=== PATIENT | female | born 1980 | race Two or more races ===

== ENCOUNTER 2017-10-13 23:41 | Inpatient (IN) | payer MEDICAID ==
[~2017-10-13] VITALS: Ht 154.9 cm; Wt 63.7 kg
[2017-10-13 23:51] VITALS: Ht 154.9 cm; Wt 63.7 kg
[2017-10-14 00:56] LABS: BASOPHIL % 0.6 % (0-2); PLATELET COUNT 263 x10^3mcL (130-400)
[2017-10-14 00:58] LABS: RED CELL DISTRIBUTION WIDTH 14.8 % (11.5-14.5)
[2017-10-14 01:01] LABS: CALCIUM 8.8 mg/dL (8.5-10.1); CARBON DIOXIDE 28.6 mmol/L (21-32); CHLORIDE SERUM 102 mmol/L (98-107); CREATININE SERUM 0.6 mg/dL (0.6-1.0); GFR1 > 60 mL/min; GLUCOSE SERUM 101 mg/dL (74-106); POTASSIUM SERUM 3.5 mmol/L (3.5-5.1); SODIUM SERUM 140 mmol/L (136-145)
[2017-10-14 01:06] LABS: ALBUMIN 3.4 g/dL (3.4-5.0); ALKALINE PHOSPHATASE 101 U/L (46-116); ALT/SGPT 12 U/L (14-59); AST/SGOT 17 U/L (15-37); BILIRUBIN TOTAL 0.2 mg/dL (0.20-1.00); TOTAL PROTEIN, SERUM 7.4 g/dL (6.4-8.2)
[2017-10-14 03:56] VITALS: BP 93/62
[2017-10-14 03:59] LABS: T3 TOTAL 1.24 ng/mL
[2017-10-14 04:10] VITALS: BP 93/62
[2017-10-14 04:10] LABS: FREE T4 1.06 ng/dL (0.76-1.46); FREE THYROXINE INDEX 2.9 ug/dL (1.4-4.5)
[2017-10-14 04:13] LABS: microscopic required? YES; urine erythrocyte TRACE (NEGATIVE)
[2017-10-14 04:21] LABS: AMPHETAMINE QUAL UR NONE DETECTED (NEG <=1000)
[2017-10-14 04:26] LABS: TOTAL IRON BINDING CAPACITY 371 ug/dL (250-450)
[2017-10-14 04:31] LABS: IRON 33 ug/dL (50-170)
[2017-10-14 06:12] VITALS: BP 100/71
[2017-10-14 08:12] LABS: BASOPHIL % 0.5 % (0-2); PLATELET COUNT 220 x10^3mcL (130-400)
[2017-10-14 08:16] LABS: RED CELL DISTRIBUTION WIDTH 14.9 % (11.5-14.5)
[2017-10-14 08:22] LABS: CALCIUM 9.2 mg/dL (8.5-10.1); CARBON DIOXIDE 26.9 mmol/L (21-32); CHLORIDE SERUM 102 mmol/L (98-107); CREATININE SERUM 0.6 mg/dL (0.6-1.0); GFR1 > 60 mL/min; GLUCOSE SERUM 90 mg/dL (74-106); MAGNESIUM 2.2 mg/dL (1.8-2.4); PHOSPHOROUS 3.7 mg/dL (2.5-4.9); POTASSIUM SERUM 3.7 mmol/L (3.5-5.1); SODIUM SERUM 137 mmol/L (136-145)
[2017-10-14 08:49] LABS: RED BLOOD CELLS 4.24 M/mm3 (4.10-5.10)
[2017-10-14 10:00] VITALS: BP 97/55
[2017-10-14] MEDS ORDERED: LIPI20 PO (12:21)
[2017-10-14] MEDS ORDERED: FERROUS SULFAT325 M2 PO (12:22)
[2017-10-14] MEDS ORDERED: PHARMASSURE VI500 MG PO (12:41)
[2017-10-14 15:50] VITALS: BP 97/55
[2017-10-14 17:24] VITALS: BP 85/56
[2017-10-18] MEDS ORDERED: ASPIR LOW81 MG PO (01:52)
== END 2017-10-14 18:25 | disposition home or self-care (01) | DRG 243 ==
LOC: ED 23:41 → DU 10-14 02:58
PROVIDERS: Emergency Medicine; Family Medicine
DX: K21.9 Gastro-esophageal reflux disease without esophagitis (principal); E78.5 Hyperlipidemia, unspecified; M94.0 Chondrocostal junction syndrome [Tietze]; N92.0 Excessive and frequent menstruation with regular cycle; D64.9 Anemia, unspecified; Z98.891 History of uterine scar from previous surgery
CPT/HCPCS: 82962; 83880; 84439; J7030; Q0092

== ENCOUNTER 2018-04-04 21:04 | Emergency (ER) | payer MEDICAID ==
[~2018-04-04] VITALS: Ht 154.9 cm; Wt 62.6 kg
[~2018-04-04 21:04] MED LIST: ASPIR LOW81 MG PO; FERROUS SULFAT325 M2 PO; LIPI20 PO; PHARMASSURE VI500 MG PO
[2018-04-04 21:16] VITALS: Ht 154.9 cm; Wt 62.6 kg
[2018-04-04 22:18] LABS: BASOPHIL % 1.2 % (0-2); PLATELET COUNT 265 x10^3mcL (130-400)
[2018-04-04 22:53] LABS: CALCIUM 8.8 mg/dL (8.5-10.1); CARBON DIOXIDE 27.5 mmol/L (21-32); CHLORIDE SERUM 104 mmol/L (98-107); CREATININE SERUM 0.8 mg/dL (0.6-1.0); GFR1 > 60 mL/min; GLUCOSE SERUM 121 mg/dL (74-106); POTASSIUM SERUM 3.5 mmol/L (3.5-5.1); SODIUM SERUM 142 mmol/L (136-145)
[2018-04-04 22:58] LABS: ALBUMIN 3.6 g/dL (3.4-5.0); ALKALINE PHOSPHATASE 113 U/L (46-116); ALT/SGPT 19 U/L (14-59); AST/SGOT 15 U/L (15-37); BILIRUBIN TOTAL 0.25 mg/dL (0.20-1.00); TOTAL PROTEIN, SERUM 7.6 g/dL (6.4-8.2)
[2018-04-04 23:33] VITALS: BP 104/59
== END 2018-04-04 23:33 | disposition home or self-care (01) ==
LOC: ED 21:04
PROVIDERS: Emergency Medicine
DX: R07.89 Other chest pain (principal); M79.1 Myalgia; Z86.2 Personal history of diseases of the blood and blood-forming organs and certain disorders involving the immune mechanism
CPT/HCPCS: 36415; Q0092

== ENCOUNTER 2018-06-16 19:20 | Emergency (ER) | payer MEDICAID ==
[~2018-06-16] VITALS: Ht 154.9 cm; Wt 63.7 kg
[2018-06-16 20:00] VITALS: Ht 154.9 cm; Wt 63.7 kg
[2018-06-16 20:49] LABS: microscopic required? YES; urine erythrocyte TRACE (NEGATIVE)
[2018-06-16 21:12] LABS: BASOPHIL % 0.5 % (0-2); PLATELET COUNT 222 x10^3mcL (130-400); RED CELL DISTRIBUTION WIDTH 15.2 % (11.5-14.5)
[2018-06-16 21:24] LABS: CALCIUM 8.6 mg/dL (8.5-10.1); CARBON DIOXIDE 22.3 mmol/L (21-32); CHLORIDE SERUM 100 mmol/L (98-107); CREATININE SERUM 0.7 mg/dL (0.6-1.0); GFR1 > 60 mL/min; GLUCOSE SERUM 128 mg/dL (74-106); POTASSIUM SERUM 3.7 mmol/L (3.5-5.1); SODIUM SERUM 134 mmol/L (136-145)
[2018-06-16 21:29] LABS: ALBUMIN 3.6 g/dL (3.4-5.0); ALKALINE PHOSPHATASE 119 U/L (46-116); ALT/SGPT 41 U/L (14-59); AST/SGOT 42 U/L (15-37); BILIRUBIN TOTAL 0.5 mg/dL (0.20-1.00); MAGNESIUM 2.1 mg/dL (1.8-2.4); TOTAL PROTEIN, SERUM 8.1 g/dL (6.4-8.2)
[2018-06-17 00:07] VITALS: BP 99/67
== END 2018-06-17 00:07 | disposition home or self-care (01) ==
LOC: ED 19:20
PROVIDERS: Emergency Medicine
DX: B34.9 Viral infection, unspecified (principal); D64.9 Anemia, unspecified
CPT/HCPCS: 36415; 87804; J7040

== ENCOUNTER 2019-08-30 12:23 | Emergency (ER) | payer MEDICAID ==
[~2019-08-30] VITALS: Ht 154.9 cm; Wt 64.9 kg
[2019-08-30 12:31] VITALS: Ht 154.9 cm; Wt 64.9 kg
[2019-08-30 13:05] LABS: BASOPHIL % 0.6 % (0-2); PLATELET COUNT 226 x10^3mcL (130-400)
[2019-08-30 13:22] LABS: CALCIUM 8.9 mg/dL (8.5-10.1); CARBON DIOXIDE 26.8 mmol/L (21-32); CHLORIDE SERUM 102 mmol/L (98-107); CREATININE SERUM 0.7 mg/dL (0.6-1.0); GFR1 > 60 mL/min; GLUCOSE SERUM 94 mg/dL (74-106); POTASSIUM SERUM 3.6 mmol/L (3.5-5.1); RED CELL DISTRIBUTION WIDTH 14.6 % (11.5-14.5); SODIUM SERUM 137 mmol/L (136-145)
[2019-08-30 13:26] LABS: ALBUMIN 3.8 g/dL (3.4-5.0); ALKALINE PHOSPHATASE 87 U/L (46-116); ALT/SGPT 51 U/L (14-59); AST/SGOT 34 U/L (15-37); BILIRUBIN TOTAL 0.5 mg/dL (0.20-1.00); LIPASE 130 IU/L (73-393); TOTAL PROTEIN, SERUM 8.2 g/dL (6.4-8.2)
[2019-08-30 13:33] LABS: microscopic required? NO
[2019-08-30 13:40] LABS: urine erythrocyte NEGATIVE (NEGATIVE)
[2019-08-30 14:32] VITALS: BP 99/65
== END 2019-08-30 14:32 | disposition home or self-care (01) ==
LOC: ED 12:23
PROVIDERS: Emergency Medicine
DX: K59.00 Constipation, unspecified (principal); E78.00 Pure hypercholesterolemia, unspecified; Z98.890 Other specified postprocedural states; Z86.2 Personal history of diseases of the blood and blood-forming organs and certain disorders involving the immune mechanism
CPT/HCPCS: 36415